=== PATIENT | male | born 1950 | race Two or more races ===

== ENCOUNTER 2017-06-29 08:59 | Emergency (ER) | payer OTHER ==
[~2017-06-29] VITALS: Ht 162.6 cm; Wt 108.9 kg
[~2017-06-29 08:59] MED LIST: AMLODIPINE; IBUP-1958 PO; JANUMET; LOVASTATIN; TAMSULOSIN; VALSARTAN
--- NOTE | 2017-06-29 09:30 | NUR ---
Dr Boateng at the bedside for eval and exam.
[2017-06-29] MEDS ORDERED: CLOP75TA15 PO (09:37)
[2017-06-29] MEDS ORDERED: LINA1TAB5 PO (09:37)
[2017-06-29] MEDS ORDERED: ATOR40TA PO (09:37)
[2017-06-29] MEDS ORDERED: TAMS-3 PO (09:37)
[2017-06-29] MEDS ORDERED: ASPI81TA31 PO (09:37)
[2017-06-29] MEDS ORDERED: CLON0.1T PO (09:37)
[2017-06-29] MEDS ORDERED: GLIP10TA11 PO (09:37)
[2017-06-29] MEDS ORDERED: VALS1TAB8 PO (09:37)
[2017-06-29] MEDS ORDERED: FENO160T PO (09:37)
[2017-06-29] MEDS ORDERED: ESCI10TA PO (09:37)
[2017-06-29] MEDS ORDERED: CARV6.252 PO (09:37)
[2017-06-29] MEDS ORDERED: AMLO10TA2 PO (09:37)
[2017-06-29 09:42] LABS: *BILIRUBIN,URIN NEGATIVE (NEGATIVE); *BLOOD, URINE 2+ (NEGATIVE); *CLARITY,URINE CLOUDY (CLEAR); *COLOR,URINE YELLOW (YELLOW); *KETONES,URINE NEGATIVE (NEGATIVE); LEUKOCYTE ESTERASE ,URINE TRACE (NEGATIVE); NITRITE, URINE POSITIVE (NEGATIVE)
[2017-06-29 09:54] LABS: *PROTEIN,URINE 3+ (NEGATIVE)
[2017-06-29 09:55] LABS: UGLUCOSE 3+ (NEGATIVE)
--- NOTE | 2017-06-29 09:56 | NUR ---
Patient discharged to home in stable conditon. Written and verbal after care instructions given. Patient verbalizes understanding of instructions.
[2017-06-29 09:57] VITALS: BP 154/77
[2017-06-29 09:59] LABS: BACTERIA,URINE MANY /HPF (NONE SEEN); RBC,URINE TNTC /HPF (0-3); SQUAMOUS EPITHELIAL CELL,UR FEW /HPF (NONE SEEN); WBC,URINE 50-80 /HPF (0-3)
== END 2017-06-29 09:58 | disposition home or self-care (01) ==
LOC: ER 08:59
DX: N39.0 Urinary tract infection, site not specified (principal); I10 Essential (primary) hypertension; E78.00 Pure hypercholesterolemia, unspecified; E11.9 Type 2 diabetes mellitus without complications; N40.0 Benign prostatic hyperplasia without lower urinary tract symptoms; Z79.82 Long term (current) use of aspirin; Z88.0 Allergy status to penicillin; Z95.5 Presence of coronary angioplasty implant and graft
CPT/HCPCS: 81001; 99283; A4663

== ENCOUNTER 2019-10-08 15:33 | Emergency (ER) | payer MEDICARE, MEDICAID ==
[~2019-10-08] VITALS: Ht 170.2 cm; Wt 120.7 kg
[2019-10-08] MEDS ORDERED: HYDROMORPHONE 1 MG/1 ML DISP.SYRIN ONE ×2 (15:54→17:17)
[2019-10-08] MEDS ORDERED: ONDANSETRON 4 MG/2 ML VIAL ONE (15:55)
--- NOTE | 2019-10-08 15:56 | NUR ---
[facility] WAS CALLED BY TI CRAWFORD FOR HIGHYER LEVEL OF CARE TRANSFER, TALKED TO [place]. PT's INFORMATION WAS FAXED. HE TALKED TO [facility]. [facility] DOES NOT HAVE AVILABLE BEDS.
[2019-10-08] MEDS ORDERED: ONDANSETRON 4 MG/2 ML VIAL IV ONE (16:00)
[2019-10-08] MEDS ORDERED: TDAP DIPH,PERTUSS,TET VAC/PF 0.5 ML DISP.SYRIN IM ONE ×2 (16:00→16:15)
[2019-10-08] MEDS ORDERED: HYDROCODONE/APAP 10-325 MG TABLET PO ONE (16:00)
[2019-10-08] MEDS ORDERED: HYDROMORPHONE 1 MG/1 ML DISP.SYRIN IV ONE ×2 (16:00→17:15)
--- NOTE | 2019-10-08 16:08 | NUR ---
PT IS IN ROOM #2B. DR CACERES EVALUATED EPT.
[2019-10-08] MEDS ORDERED: HYDROCODONE/APAP 10-325 MG TABLET ONE (16:15)
[2019-10-08] MEDS ORDERED: CEFTRIAXONE 1 G in IV DEXTROSE 5% 50 ML IV ONE (16:15)
[2019-10-08] MEDS ORDERED: CEFTRIAXONE /D5W 50ML IVPB **ER PYXIS IV ONE (16:26)
--- NOTE | 2019-10-08 17:27 | NUR ---
[facility] WAS CALLED. TALKED TO [place]. PT's INFORMATION WAS FAXED TO [facility].
--- NOTE | 2019-10-08 17:58 | NUR ---
[facility] DR MUNSON CALLED BACK AND TALKED TO DR CACERES. DR MUNSON ACCEPTING THE PT. [facility] ESTIMATOR ANAIS CALLED BACK WITH TRANSFER INFORMATION. PT IS GOING TO [facility] ER, ADMITING MD IS DR LIMON. TELEPHONE NUMBER FOR REPORT IS [phone].
--- NOTE | 2019-10-08 18:39 | NUR ---
[facility] WAS CALLED TO TRANSFER THE PT. SHARON IS 45 MINUTES. REPORT WAS GIVEN TO [facility].
--- NOTE | 2019-10-08 18:59 | NUR ---
PT WAS TRANSFERED TO [facility] ER VIA [facility].
== END 2019-10-08 19:03 | disposition short-term general hospital (02) ==
LOC: ER 15:34
DX: S68.022A Partial traumatic metacarpophalangeal amputation of left thumb, initial encounter (principal); I10 Essential (primary) hypertension; E78.5 Hyperlipidemia, unspecified; E11.9 Type 2 diabetes mellitus without complications; Z88.0 Allergy status to penicillin; Z79.899 Other long term (current) drug therapy; Z79.82 Long term (current) use of aspirin; Z79.01 Long term (current) use of anticoagulants; W26.8XXA Contact with other sharp object(s), not elsewhere classified, initial encounter; Y93.89 Activity, other specified; Y92.89 Other specified places as the place of occurrence of the external cause; Y99.8 Other external cause status
CPT/HCPCS: 73140; 90471; 90715; 96365; 96375; 96376; 99285; J0696; J1170 ×2; J2405; A4663